=== PATIENT | male | born 1995 | race Two or more races ===

== ENCOUNTER 2021-09-05 | Emergency (ER) | payer SELFPAY ==
[~2021-09-05] VITALS: Ht 180.3 cm; Wt 75.0 kg
[2021-09-05 00:23] VITALS: BP 139/76
[2021-09-05 00:54] LABS: BASOPHILS % 0.5 % (0.0-2.0); EOSINOPHILS % 0.7 % (0.0-5.0); HEMATOCRIT. 40.5 % (42.0-52.0); HEMOGLOBIN. 14.4 g/dL (14.0-18.0); LYMPHOCYTES % 17.1 % (20.0-50.0); MEAN CORPUSCULAR HEMOGLOBIN 32.3 pg (28.0-32.0); MEAN CORPUSCULAR VOLUME 90.9 fL (80.0-94.0); MEAN PLATELET VOLUME 8.4 fl (7.4-10.4); MONOCYTES % 8.6 % (2.0-8.0); NEUTROPHILS % 73.1 % (40.0-76.0); PLATELET 217 x1000/uL (130-400); RED BLOOD CELL COUNT 4.45 mill/uL (4.7-6.1)
[2021-09-05 01:00] LABS: CHLORIDE 103 mEq/L (98-107)
[2021-09-05 01:04] LABS: ETHANOL BLOOD < 10 mg/dL
== END 2021-09-05 03:00 | disposition left against medical advice (07) ==
LOC: ER
DX: R55 Syncope and collapse (principal)
CPT/HCPCS: 36415; 71045; 80053; 80320; 85025; 93005; 99285; G0480